=== PATIENT | female | born 1985 | race Caucasian/White ===

== ENCOUNTER 2020-10-13 18:00 | Emergency (ER) | payer OTHER ==
[~2020-10-13] VITALS: Ht 170.2 cm; Wt 63.5 kg
[2020-10-13] MEDS ORDERED: PREDNISONE20 MG PO (18:22)
== END 2020-10-13 19:05 | disposition home or self-care (01) ==
LOC: ED 18:00
DX: T78.40XA Allergy, unspecified, initial encounter (principal); L53.8 Other specified erythematous conditions
CPT/HCPCS: 96372; 99283; J1100; Q0163

== ENCOUNTER 2022-09-14 20:36 | Emergency (ER) | payer BC ==
[~2022-09-14] VITALS: Ht 170.2 cm; Wt 63.0 kg
[~2022-09-14 20:36] MED LIST: PREDNISONE20 MG PO
[2022-09-14] MEDS ORDERED: ZYRTEC10 M3 PO (22:56)
[2022-09-14] MEDS ORDERED: PEPCID20 MG PO (22:56)
[2022-09-14] MEDS ORDERED: RAYOS2 MG PO (22:56)
[2022-09-14 23:00] VITALS: BP 127/87
== END 2022-09-14 23:04 | disposition home or self-care (01) ==
LOC: ED 20:36
DX: S90.562A Insect bite (nonvenomous), left ankle, initial encounter (principal); S90.561A Insect bite (nonvenomous), right ankle, initial encounter; W57.XXXA Bitten or stung by nonvenomous insect and other nonvenomous arthropods, initial encounter
CPT/HCPCS: 99282; J1100